=== PATIENT | female | born 1960 | race Caucasian/White ===

== ENCOUNTER 2019-04-27 18:11 | Emergency (ER) | payer SELFPAY ==
[~2019-04-27] VITALS: Ht 154.9 cm; Wt 65.0 kg
[2019-04-27] MEDS ORDERED: IBUPROFEN 600MG TABLET PO STA (22:33)
[2019-04-28 01:12] VITALS: BP 150/90
== END 2019-04-28 01:13 | disposition home or self-care (01) ==
LOC: ER 18:11
DX: S16.1XXA Strain of muscle, fascia and tendon at neck level, initial encounter (principal); S39.012A Strain of muscle, fascia and tendon of lower back, initial encounter; V43.52XA Car driver injured in collision with other type car in traffic accident, initial encounter; Y93.9 Activity, unspecified; Y92.410 Unspecified street and highway as the place of occurrence of the external cause
CPT/HCPCS: 72100; 99284

== ENCOUNTER 2021-09-24 17:57 | Emergency (ER) | payer SELFPAY ==
[~2021-09-24] VITALS: Ht 152.4 cm; Wt 61.0 kg
[2021-09-24] MEDS ORDERED: TETANUS, DIPHTHERIA, PERTUSSIS VAC/PF 0.5ML (>10YR OLD) IM ONE (19:30)
[2021-09-24 22:00] VITALS: BP 146/86
== END 2021-09-24 22:01 | disposition home or self-care (01) ==
LOC: ER 17:57
DX: S91.011A Laceration without foreign body, right ankle, initial encounter (principal); Z98.890 Other specified postprocedural states; X58.XXXA Exposure to other specified factors, initial encounter; Y93.01 Activity, walking, marching and hiking; Y92.89 Other specified places as the place of occurrence of the external cause; Y99.8 Other external cause status
CPT/HCPCS: 12002; 73610; 90471; 90715; 99283; Z7610

== ENCOUNTER 2021-10-03 09:09 | Emergency (ER) | payer MEDICAID ==
[~2021-10-03] VITALS: Ht 154.9 cm; Wt 66.0 kg
[2021-10-03 09:32] VITALS: BP 154/93
== END 2021-10-03 10:28 | disposition home or self-care (01) ==
LOC: ER 09:09
DX: Z48.02 Encounter for removal of sutures (principal); I10 Essential (primary) hypertension; Z98.890 Other specified postprocedural states
CPT/HCPCS: 99281